=== PATIENT | male | born 1960 | race Two or more races ===

== ENCOUNTER 2023-10-28 08:20 | Emergency (ER) | payer OTHER ==
[~2023-10-28] VITALS: Ht 175.3 cm; Wt 113.4 kg
[~2023-10-28 08:20] MED LIST: NABUMETONE750 MG PO
[2023-10-28] MEDS ORDERED: KETOROLAC TROMETHAMINE 60 MG VIAL IM ONE (10:30)
[2023-10-28] MEDS ORDERED: KETO10TA2 PO (11:27)
== END 2023-10-28 11:32 | disposition home or self-care (01) ==
LOC: ER 08:20
DX: M94.0 Chondrocostal junction syndrome [Tietze] (principal); R07.89 Other chest pain